=== PATIENT | female | born 2005 | race Hispanic/Latino ===

== ENCOUNTER 2025-02-28 14:14 | Emergency (ER) | payer SELFPAY ==
[2025-02-28] MEDS ORDERED: Acetaminophen 500 MG TAB ONE (15:12)
== END 2025-02-28 15:44 | disposition home or self-care (01) ==
LOC: ERS 14:14
DX: B34.9 Viral infection, unspecified (principal); R11.2 Nausea with vomiting, unspecified
CPT/HCPCS: 87428; 99284; Q0162